=== PATIENT | male | born 1935 | race Hispanic/Latino ===

== ENCOUNTER 2018-09-19 14:42 | Inpatient (IN) | payer MEDICARE ==
[2018-09-19] MEDS ORDERED: Sodium Chloride 0.9% 500 ML IV STA (15:48)
[2018-09-19 15:51] LABS: BASO # 0.02 K/mm3 (0.0-2.0); BASO % 0.2 % (0.0-3.0); EOS # 0.1 (0.0-0.7); EOS % 1.7 % (1.5-5.0); GRAN # 4.51 (1.4-6.5); GRAN % 55.7 % (50.0-68.0); HEMOGLOBIN 13.2 g/dL (14.0-18.0); LYMPH # 2.4 (1.2-3.4); LYMPH % 29.9 % (22.0-35.0); MEAN CELL VOLUME 93.4 fl (80.0-105.0); MEAN CORPUSCULAR HEMOGLOBIN 31.3 pg (25.0-35.0); MEAN CORPUSCULAR HGB CONC 33.5 g/dl (31.0-37.0); MONO % 12.5 % (1.0-6.0); RBC 4.22 10^6/uL (3.5-6.1); RED CELL DISTRIBUTION WIDTH 15.2 % (11.5-14.5); WHITE BLOOD COUNT 8.1 10^3/uL (4.5-11.0)
[2018-09-19 15:55] LABS: VENOUS BLOOD GAS BASE EXCESS -1.9 mmol/L (0.0-2.0); VENOUS BLOOD GAS PO2 37 mm/Hg (30-55); VENOUS BLOOD PH 7.33 (7.32-7.43)
[2018-09-19 16:01] LABS: INR 1.15; PARTIAL THROMBOPLASTIN TIME 29.4 Seconds (25.1-36.5); PROTHROMBIN TIME 13.1 SECONDS (9.4-12.5)
[2018-09-19 16:05] LABS: ALB/GLOB RATIO 0.9 (1.1-1.8); ALBUMIN 3.5 g/dL (3.0-4.8); CALCIUM 9.4 mg/dL (8.4-10.5)
--- NOTE | 2018-09-19 16:05 | ED PDOC ---
Arrival/HPI - General Chief Complaint: Weakness/Neurological Deficit Time Seen by Provider: 09/19/18 14:48 Historian: Spouse, Family EM Caveat: Altered Mental Status - History of Present Illness Narrative History of Present Illness (Text): 09/19/18 16:03 Patient is an 83 yo male past medical history of CVA, presents to the Emergency Department with and daughter for altered mental status "over the past week". Patient reportedly has not been as talkative or interactive and this morning, "wasn't talking very much". No history of trauma. No history of vomiting. No history of shortness of breath or cough. Patient has not expressed pain. He is unable to provide history due to acuity of condition. Time/Duration: 1 week Symptom Onset: Gradual Past Medical History - Cardiac Hx Hypertension: Yes - Neurological HX Cerebrovascular Accident: Yes (x2) - Psychiatric Hx Substance Use: No Family/Social History Family/Social History: Unknown Family HX Smoking Status: Never Smoked Hx Alcohol Use: No Hx Substance Use: No Allergies/Home Meds Allergies/Adverse Reactions: Allergies No Known Allergies Allergy (Verified 09/19/18 14:47) Home Medications: Home Meds Medication Instructions Recorded Confirmed Alprazolam [Alprazolam Xr] 0.5 mg PO HS 09/19/18 09/19/18 Atenolol [Tenormin] 100 mg PO QPM 09/19/18 09/19/18 Losartan [Cozaar] 50 mg PO QAM 09/19/18 09/19/18 amLODIPine [Norvasc] 10 mg PO DAILY 09/19/18 09/19/18 metFORMIN [glucOPHAGE] 500 mg PO DAILY 09/19/18 09/19/18 Review of Systems - Review of Systems Systems not reviewed;Unavailable: Altered Mental Status Constitutional: Fatigue. absent: Fevers Respiratory: absent: SOB Cardiovascular: absent: Chest Pain Gastrointestinal: Appetite Changes Skin: Skin Lesions Neurological: Focal Weakness (from prior stroke) Physical Exam Vital Signs Reviewed: Yes Vital Signs Temp Pulse Resp BP Pulse Ox 09/19/18 15:26 97.6 F 50 L 18 103/51 L 95 Temperature: Afebrile Blood Pressure: Hypotensive Pulse: Bradycardic Appearance: Positive for: Ill-Appearing Mental Status: Positive for: Lethargic Finger Stick Blood Glucose: 79 - Systems Exam Head: Present: Atraumatic Conjunctiva: No: Injected Mouth: Present: Dry, Other (facial droop) Pharnyx: No: Strider Neck: Present: Normal Range of Motion. No: Meningeal Signs Respiratory/Chest: Present: Clear to Auscultation. No: Respiratory Distress Cardiovascular: Present: Murmurs, Bradycardic Abdomen: No: Tenderness, Distention Rectal: No: Gross Blood Upper Extremity: No: Edema Lower Extremity: Present: NORMAL PULSES Neurological: Present: Other (left sided weakness, facial droop, slow slurred speech) Psychiatric: No: Normal Insight, Normal Concentration Medical Decision Making ED Course and Treatment: 09/19/18 16:51 Patient's history is supplemented by and daughter. They state altered mental status has gradually progressed over course of past week, worse over past 24 hours. Patient has history of prior stroke and family states facial droop and left sided weakness are baseline. Patient currently is afebrile. He is bradycardic however with st and t wave abnormality. He does not express pain while in ED. Family states that "he hasn't been eating at all" over the past week. No pain expressed. Hypotension noted. IVF bolus ordered. Initial WBC and lactate unremarkable. ? underlying infectious etiology as UTI noted, although bradycardia with st changes noted suggests possible cardiac involvement although no recent EKG or cardiac workup noted. Case d/w Dr. Jonathan Camacho, will admit to monitored bed, cardiology consultation. 09/19/18 17:07 Chest X-ray reviewed, shows: Impression: No active disease. CT Head reviewed, shows: Impression: No acute findings 09/19/18 17:19 CT Chest/Abdomen/Pelvis reviewed, shows: IMPRESSION: No acute intrathoracic or intra-abdominal findings Upon return from CT patient's SBP 70s. Patient remains altered. IV fluid bolus given and SBP improved to 90s patient more alert and attentive. Family requests DR. De Souza from cardiology, I reviewed EKG with DR. De Souza and consulted Dr. De Souza regarding history and current vitals and exam. Patient will be upgraded to ICU given episode of bradycardia/hypotension. Case d/w DR. Ale Durham who accepts patient to ICU. 09/19/18 17:38 - Lab Interpretations Lab Results: 09/19/18 15:41 Lab Results 09/19/18 15:41: WBC 8.1, RBC 4.22, Hgb 13.2 L, Hct 39.4 L, MCV 93.4, MCH 31.3, MCHC 33.5, RDW 15.2 H, Plt Count 234, MPV 10.0, Gran % 55.7, Lymph % (Auto) 29.9, [place] % (Auto) 12.5 H, Eos % (Auto) 1.7, Baso % (Auto) 0.2, Gran # 4.51, Lymph # (Auto) 2.4, [place] # (Auto) 1.0 H, Eos # (Auto) 0.1, Baso # (Auto) 0.02 09/19/18 15:41: pO2 37, VBG pH 7.33, VBG pCO2 46.0, VBG HCO3 24.3, VBG Total CO2 25.7, VBG O2 Sat (Calc) 72.1 H, VBG Base Excess -1.9 L, VBG Potassium 5.2, Sodium 140.0, Chloride 103.0, Glucose 93, Lactate 1.3, FiO2 21.0, Venous Blood Potassium 5.2 09/19/18 15:19: POC Glucose (mg/dL) 94 - RAD Interpretation Radiology Orders: 09/19/18 14:57 HEAD W/O CONTRAST [CT] Stat CHEST ONE VIEW [RAD] Stat - EKG Interpretation EKG Interpretation (Text): EKG at 1521 marked sinus bradycardia wtih first degree av block with premature atrial complexes with aberrant conduction, st and t wave abnormality Interpreted by ED Physician: Yes Type: 12 lead EKG - Medication Orders Current Medication Orders: Sodium Chloride (Sodium Chloride 0.9%) 500 mls @ 1,000 mls/hr IV .Q30M STA Stop: 09/19/18 16:17 Disposition/Present on Arrival - Present on Arrival Any Indicators Present on Arrival: No History of DVT/PE: No History of Uncontrolled Diabetes: No Urinary Catheter: No History of Decub. Ulcer: No History Surgical Site Infection Following: None - Disposition Have Diagnosis and Disposition been Completed?: Yes Diagnosis: Altered mental status, UTI (urinary tract infection), Bradycardia Disposition: HOSPITALIZED Disposition Time: 16:54 Patient Plan: Admission, Telemetry Patient Problems: Current Active Problems Problem Status Onset Altered mental status Acute Bradycardia Acute UTI (urinary tract infection) Acute Condition: CRITICAL
[2018-09-19 16:16] LABS: TROPONIN I 0.02 ng/mL
[2018-09-19 16:19] LABS: URINE BILIRUBIN NEGATIVE (NEGATIVE); URINE BLOOD LARGE (NEGATIVE); URINE GLUCOSE (UA) NEGATIVE (NEGATIVE); URINE LEUKOCYTE ESTERASE LARGE Leu/uL (NEGATIVE); URINE PROTEIN 100 mg/dL (<30 mg/dL); URINE UROBILINOGEN 0.2 E.U./dL (<1 E.U./dL)
[2018-09-19 16:20] LABS: URINE APPEARANCE CLOUDY (CLEAR); URINE COLOR YELLOW (YELLOW)
[2018-09-19 16:21] LABS: CK-MB 3.3 ng/mL (0.0-3.6)
[2018-09-19 16:26] LABS: URINE BACTERIA LARGE (NEG); URINE WBC 25 - 30 /hpf (0-6)
--- NOTE | 2018-09-19 16:56 | RAD ---
Date of service: 09/19/2018 PROCEDURE: CHEST RADIOGRAPH, 1 VIEW HISTORY: ams COMPARISON: None available. FINDINGS: LUNGS: Clear. PLEURA: No pneumothorax or pleural fluid seen. CARDIOVASCULAR: Minimal aortic calcification mild cardiomegaly. Aortic tortuosity OSSEOUS STRUCTURES: No significant abnormalities. VISUALIZED UPPER ABDOMEN: Normal. OTHER FINDINGS: None. IMPRESSION: No active disease.
--- NOTE | 2018-09-19 17:03 | CT ---
Date of service: 09/19/2018 PROCEDURE: CT HEAD WITHOUT CONTRAST. HISTORY: ams COMPARISON: None available. TECHNIQUE: Axial computed tomography images were obtained through the head/brain without intravenous contrast. Radiation dose: Total exam DLP = 955.36 mGy-cm. This CT exam was performed using one or more of the following dose reduction techniques: Automated exposure control, adjustment of the mA and/or kV according to patient size, and/or use of iterative reconstruction technique. FINDINGS: HEMORRHAGE: No intracranial hemorrhage. BRAIN: No mass effect or edema. Severe chronic microvascular changes are seen in the periventricular white matter. There is moderate atrophy including the brainstem. There is a chronic lacunar infarct on the right side of the grayson VENTRICLES: There is ventricular dilatation right greater than left most likely on the basis of atrophy. CALVARIUM: Unremarkable. PARANASAL SINUSES: Unremarkable as visualized. No significant inflammatory changes. MASTOID AIR CELLS: Unremarkable as visualized. No inflammatory changes. OTHER FINDINGS: None. IMPRESSION: No acute findings
--- NOTE | 2018-09-19 17:13 | CT ---
Date of service: 09/19/2018 PROCEDURE: CT Chest, Abdomen and Pelvis without intravenous contrast HISTORY: pain, ams COMPARISON: None available. TECHNIQUE: Radiation dose: Total exam DLP = 440.7 mGy-cm. This CT exam was performed using one or more of the following dose reduction techniques: Automated exposure control, adjustment of the mA and/or kV according to patient size, and/or use of iterative reconstruction technique. FINDINGS: CT CHEST WITHOUT CONTRAST: LUNGS: The lungs have a hyper expanded appearance consistent with COPD. There is no focal infiltrate. There are no masses MEDIASTINUM: Unremarkable. Normal caliber aorta and pulmonary arterial trunk. Normal size heart. Aortic calcifications. Coronary artery calcifications LYMPH NODES: Unremarkable. PLEURA: Unremarkable. No pneumothorax. No pleural fluid. BONES: Unremarkable. OTHER FINDINGS: None. CT ABDOMEN AND PELVIS: LIVER: Unremarkable. No gross lesion or ductal dilatation. GALLBLADDER AND BILE DUCTS: The gallbladder contains dense material consistent with milk of calcium. The gallbladder is moderately distended PANCREAS: Unremarkable. No gross lesion or ductal dilatation. SPLEEN: Unremarkable. ADRENALS: Unremarkable. No mass. KIDNEYS AND URETERS: Unremarkable. No hydronephrosis. No solid mass. VASCULATURE: No aortic atherosclerotic calcification or mural plaque present. Unremarkable. No aortic aneurysm. BOWEL: Unremarkable. No obstruction. No gross mural thickening. APPENDIX: Normal appendix. PERITONEUM: Unremarkable. No free fluid. No free air. LYMPH NODES: Unremarkable. No enlarged lymph nodes. BLADDER: Unremarkable. REPRODUCTIVE: Unremarkable. BONES: No acute fracture. OTHER FINDINGS: None. IMPRESSION: No acute intrathoracic or intra-abdominal findings
[2018-09-19] MEDS ORDERED: Sodium Chloride 0.9% 1,000 ML IV STA (17:40)
--- NOTE | 2018-09-19 21:26 | CP.PCM.CON ---
<JuanGuanakito - Last Filed: 09/19/18 21:07> History of Present Illness - History of Present Illness History of Present Illness: ICU Consult Note: Juan PGY - 2 Reason For Consult: Bradycardia and Hypotension HPI: 83 year old male with pertinent medical history of past CVA presents with altered mental status. Per chart review, patient has been less interactive for the past week and has been not himself. ICU consult was obtained for bradycardia and hypotension. Patient is a very poor historian, but does not offer any complaints, including chest pain, shortness of breath, or pain. Review of Systems: 12 point ROS obtained and negative except as per HPI Surgical Hx: Patient denies, but poor historian Medical Hx: CVA Allergies: NKDA Social Hx: Denies illicits, tobacco, EtOH Home Meds: Reviewed, as per MAR Family Hx: Non-contributory Past Patient History - Past Social History Smoking Status: Never Smoked - CARDIAC Hx Hypertension: Yes - NEUROLOGICAL HX Cerebrovascular Accident: Yes (x2) - PSYCHIATRIC Hx Substance Use: No Meds Allergies/Adverse Reactions: Allergies Allergy/AdvReac Type Severity Reaction Status Date / Time No Known Allergies Allergy Verified 09/19/18 14:47 - Medications Medications: Current Medications Sodium Chloride (Sodium Chloride 0.9%) 1,000 mls @ 100 mls/hr IV .Q10H BENJAMIN Physical Exam - Constitutional Appears: Well - Head Exam Head Exam: ATRAUMATIC, NORMAL INSPECTION, NORMOCEPHALIC - Eye Exam Eye Exam: EOMI, Normal appearance, PERRL Pupil Exam: NORMAL ACCOMODATION, PERRL - ENT Exam ENT Exam: Mucous Membranes Moist, Normal Exam - Neck Exam Neck exam: Positive for: Normal Inspection - Respiratory Exam Respiratory Exam: Clear to Auscultation Bilateral, NORMAL BREATHING PATTERN - Cardiovascular Exam Cardiovascular Exam: REGULAR RHYTHM - GI/Abdominal Exam GI & Abdominal Exam: Normal Bowel Sounds, Soft. absent: Tenderness - Extremities Exam Extremities exam: Positive for: normal inspection - Back Exam Back exam: NORMAL INSPECTION - Neurological Exam Neurological exam: Alert, CN II-XII Intact, Normal Gait, Oriented x3, Reflexes Normal - Psychiatric Exam Psychiatric exam: Normal Affect, Normal Mood - Skin Skin Exam: Dry, Intact, Normal Color, Warm Results - Vital Signs Recent Vital Signs: Last Vital Signs Temp 97.6 F 09/19/18 19:58 Pulse 46 L 09/19/18 19:58 Resp 18 09/19/18 19:58 BP 105/43 L 09/19/18 19:58 Pulse Ox 96 09/19/18 19:58 - Labs Result Diagrams: 09/19/18 15:41 09/19/18 15:41 Labs: Laboratory Results - last 24 hr 09/19/18 09/19/18 09/19/18 15:19 15:41 15:41 WBC 8.1 RBC 4.22 Hgb 13.2 L Hct 39.4 L MCV 93.4 MCH 31.3 MCHC 33.5 RDW 15.2 H Plt Count 234 MPV 10.0 Gran % 55.7 Lymph % (Auto) 29.9 [place] % (Auto) 12.5 H Eos % (Auto) 1.7 Baso % (Auto) 0.2 Gran # 4.51 Lymph # (Auto) 2.4 [place] # (Auto) 1.0 H Eos # (Auto) 0.1 Baso # (Auto) 0.02 PT INR APTT pO2 37 VBG pH 7.33 VBG pCO2 46.0 VBG HCO3 24.3 VBG Total CO2 25.7 VBG O2 Sat (Calc) 72.1 H VBG Base Excess -1.9 L VBG Potassium 5.2 Sodium 140.0 Chloride 103.0 Glucose 93 Lactate 1.3 FiO2 21.0 Potassium Carbon Dioxide Anion Gap BUN Creatinine Est GFR ( Amer) Est GFR (Non-Af Amer) POC Glucose (mg/dL) 94 Random Glucose Calcium Magnesium Total Bilirubin AST ALT Alkaline Phosphatase Lactate Dehydrogenase Total Creatine Kinase CK-MB (CK-2) CK-MB (CK-2) % Troponin I NT-Pro-B Natriuret Pep Total Protein Albumin Globulin Albumin/Globulin Ratio Venous Blood Potassium 5.2 Urine Color Urine Appearance Urine pH Ur Specific [place] Urine Protein Urine Glucose (UA) Urine Ketones Urine Blood Urine Nitrate Urine Bilirubin Urine Urobilinogen Ur Leukocyte Esterase Urine RBC Urine WBC Ur Epithelial Cells Urine Bacteria Influenza Typ A,B (EIA) 09/19/18 09/19/18 09/19/18 15:41 15:41 15:41 WBC RBC Hgb Hct MCV MCH MCHC RDW Plt Count MPV Gran % Lymph % (Auto) [place] % (Auto) Eos % (Auto) Baso % (Auto) Gran # Lymph # (Auto) [place] # (Auto) Eos # (Auto) Baso # (Auto) PT 13.1 H INR 1.15 APTT 29.4 pO2 VBG pH VBG pCO2 VBG HCO3 VBG Total CO2 VBG O2 Sat (Calc) VBG Base Excess VBG Potassium Sodium 139 Chloride 106 Glucose Lactate FiO2 Potassium 5.3 H Carbon Dioxide 25 Anion Gap 14 BUN 31 H Creatinine 1.7 H Est GFR ( Amer) 47 Est GFR (Non-Af Amer) 39 POC Glucose (mg/dL) Random Glucose 97 Calcium 9.4 Magnesium 2.3 H Total Bilirubin 1.1 AST 29 ALT 18 Alkaline Phosphatase 89 Lactate Dehydrogenase 451 Total Creatine Kinase 308 H CK-MB (CK-2) 3.3 CK-MB (CK-2) % Cancelled Troponin I 0.02 NT-Pro-B Natriuret Pep 2300 H Total Protein 7.5 Albumin 3.5 Globulin 4.0 Albumin/Globulin Ratio 0.9 L Venous Blood Potassium Urine Color Urine Appearance Urine pH Ur Specific [place] Urine Protein Urine Glucose (UA) Urine Ketones Urine Blood Urine Nitrate Urine Bilirubin Urine Urobilinogen Ur Leukocyte Esterase Urine RBC Urine WBC Ur Epithelial Cells Urine Bacteria Influenza Typ A,B (EIA) Negative for flu a/b 09/19/18 09/19/18 09/19/18 15:48 16:11 20:54 WBC RBC Hgb Hct MCV MCH MCHC RDW Plt Count MPV Gran % Lymph % (Auto) [place] % (Auto) Eos % (Auto) Baso % (Auto) Gran # Lymph # (Auto) [place] # (Auto) Eos # (Auto) Baso # (Auto) PT INR APTT pO2 VBG pH VBG pCO2 VBG HCO3 VBG Total CO2 VBG O2 Sat (Calc) VBG Base Excess VBG Potassium Sodium Chloride Glucose Lactate FiO2 Potassium Carbon Dioxide Anion Gap BUN Creatinine Est GFR ( Amer) Est GFR (Non-Af Amer) POC Glucose (mg/dL) 97 95 Random Glucose Calcium Magnesium Total Bilirubin AST ALT Alkaline Phosphatase Lactate Dehydrogenase Total Creatine Kinase CK-MB (CK-2) CK-MB (CK-2) % Troponin I NT-Pro-B Natriuret Pep Total Protein Albumin Globulin Albumin/Globulin Ratio Venous Blood Potassium Urine Color Yellow Urine Appearance Cloudy Urine pH 6.0 Ur Specific [place] >= 1.030 Urine Protein 100 H Urine Glucose (UA) Negative Urine Ketones Trace H Urine Blood Large H Urine Nitrate Positive H Urine Bilirubin Negative Urine Urobilinogen 0.2 Ur Leukocyte Esterase Large H Urine RBC 2 - 5 Urine WBC 25 - 30 Ur Epithelial Cells None Urine Bacteria Large Influenza Typ A,B (EIA) Assessment & Plan - Assessment and Plan (Free Text) Assessment: 83 year old male with pmhx of CVA presenting with AMS and bradycardia with hypotension. ICU consultation obtained for the latter. Recommend: - Trend tropes and EKG in AM - Monitor blood pressure - Give plenty of IVF ICU is not needed at this time. Please feel free to re-consult if patient becomes hemodynamically unstable. <Rani Saucedo - Last Filed: 09/20/18 03:37> Meds - Medications Medications: Current Medications Sodium Chloride (Sodium Chloride 0.9%) 1,000 mls @ 100 mls/hr IV .Q10H BENJAMIN Last Admin: 09/20/18 01:24 Dose: 100 mls/hr Results - Vital Signs Recent Vital Signs: Last Vital Signs Temp 97.6 F 09/19/18 19:58 Pulse 46 L 09/19/18 19:58 Resp 18 09/19/18 19:58 BP 105/43 L 09/19/18 19:58 Pulse Ox 96 09/19/18 19:58 - Labs Result Diagrams: 09/19/18 15:41 09/19/18 15:41 Labs: Laboratory Results - last 24 hr 09/19/18 09/19/18 09/19/18 15:19 15:41 15:41 WBC 8.1 RBC 4.22 Hgb 13.2 L Hct 39.4 L MCV 93.4 MCH 31.3 MCHC 33.5 RDW 15.2 H Plt Count 234 MPV 10.0 Gran % 55.7 Lymph % (Auto) 29.9 [place] % (Auto) 12.5 H Eos % (Auto) 1.7 Baso % (Auto) 0.2 Gran # 4.51 Lymph # (Auto) 2.4 [place] # (Auto) 1.0 H Eos # (Auto) 0.1 Baso # (Auto) 0.02 PT INR APTT pO2 37 VBG pH 7.33 VBG pCO2 46.0 VBG HCO3 24.3 VBG Total CO2 25.7 VBG O2 Sat (Calc) 72.1 H VBG Base Excess -1.9 L VBG Potassium 5.2 Sodium 140.0 Chloride 103.0 Glucose 93 Lactate 1.3 FiO2 21.0 Potassium Carbon Dioxide Anion Gap BUN Creatinine Est GFR ( Amer) Est GFR (Non-Af Amer) POC Glucose (mg/dL) 94 Random Glucose Calcium Magnesium Total Bilirubin AST ALT Alkaline Phosphatase Lactate Dehydrogenase Total Creatine Kinase CK-MB (CK-2) CK-MB (CK-2) % Troponin I NT-Pro-B Natriuret Pep Total Protein Albumin Globulin Albumin/Globulin Ratio Venous Blood Potassium 5.2 Urine Color Urine Appearance Urine pH Ur Specific [place] Urine Protein Urine Glucose (UA) Urine Ketones Urine Blood Urine Nitrate Urine Bilirubin Urine Urobilinogen Ur Leukocyte Esterase Urine RBC Urine WBC Ur Epithelial Cells Urine Bacteria Influenza Typ A,B (EIA) 09/19/18 09/19/18 09/19/18 15:41 15:41 15:41 WBC RBC Hgb Hct MCV MCH MCHC RDW Plt Count MPV Gran % Lymph % (Auto) [place] % (Auto) Eos % (Auto) Baso % (Auto) Gran # Lymph # (Auto) [place] # (Auto) Eos # (Auto) Baso # (Auto) PT 13.1 H INR 1.15 APTT 29.4 pO2 VBG pH VBG pCO2 VBG HCO3 VBG Total CO2 VBG O2 Sat (Calc) VBG Base Excess VBG Potassium Sodium 139 Chloride 106 Glucose Lactate FiO2 Potassium 5.3 H Carbon Dioxide 25 Anion Gap 14 BUN 31 H Creatinine 1.7 H Est GFR ( Amer) 47 Est GFR (Non-Af Amer) 39 POC Glucose (mg/dL) Random Glucose 97 Calcium 9.4 Magnesium 2.3 H Total Bilirubin 1.1 AST 29 ALT 18 Alkaline Phosphatase 89 Lactate Dehydrogenase 451 Total Creatine Kinase 308 H CK-MB (CK-2) 3.3 CK-MB (CK-2) % Cancelled Troponin I 0.02 NT-Pro-B Natriuret Pep 2300 H Total Protein 7.5 Albumin 3.5 Globulin 4.0 Albumin/Globulin Ratio 0.9 L Venous Blood Potassium Urine Color Urine Appearance Urine pH Ur Specific [place] Urine Protein Urine Glucose (UA) Urine Ketones Urine Blood Urine Nitrate Urine Bilirubin Urine Urobilinogen Ur Leukocyte Esterase Urine RBC Urine WBC Ur Epithelial Cells Urine Bacteria Influenza Typ A,B (EIA) Negative for flu a/b 09/19/18 09/19/18 09/19/18 15:48 16:11 20:54 WBC RBC Hgb Hct MCV MCH MCHC RDW Plt Count MPV Gran % Lymph % (Auto) [place] % (Auto) Eos % (Auto) Baso % (Auto) Gran # Lymph # (Auto) [place] # (Auto) Eos # (Auto) Baso # (Auto) PT INR APTT pO2 VBG pH VBG pCO2 VBG HCO3 VBG Total CO2 VBG O2 Sat (Calc) VBG Base Excess VBG Potassium Sodium Chloride Glucose Lactate FiO2 Potassium Carbon Dioxide Anion Gap BUN Creatinine Est GFR ( Amer) Est GFR (Non-Af Amer) POC Glucose (mg/dL) 97 95 Random Glucose Calcium Magnesium Total Bilirubin AST ALT Alkaline Phosphatase Lactate Dehydrogenase Total Creatine Kinase CK-MB (CK-2) CK-MB (CK-2) % Troponin I NT-Pro-B Natriuret Pep Total Protein Albumin Globulin Albumin/Globulin Ratio Venous Blood Potassium Urine Color Yellow Urine Appearance Cloudy Urine pH 6.0 Ur Specific [place] >= 1.030 Urine Protein 100 H Urine Glucose (UA) Negative Urine Ketones Trace H Urine Blood Large H Urine Nitrate Positive H Urine Bilirubin Negative Urine Urobilinogen 0.2 Ur Leukocyte Esterase Large H Urine RBC 2 - 5 Urine WBC 25 - 30 Ur Epithelial Cells None Urine Bacteria Large Influenza Typ A,B (EIA) 09/19/18 22:30 WBC RBC Hgb Hct MCV MCH MCHC RDW Plt Count MPV Gran % Lymph % (Auto) [place] % (Auto) Eos % (Auto) Baso % (Auto) Gran # Lymph # (Auto) [place] # (Auto) Eos # (Auto) Baso # (Auto) PT INR APTT pO2 VBG pH VBG pCO2 VBG HCO3 VBG Total CO2 VBG O2 Sat (Calc) VBG Base Excess VBG Potassium Sodium Chloride Glucose Lactate FiO2 Potassium Carbon Dioxide Anion Gap BUN Creatinine Est GFR ( Amer) Est GFR (Non-Af Amer) POC Glucose (mg/dL) Random Glucose Calcium Magnesium Total Bilirubin AST ALT Alkaline Phosphatase Lactate Dehydrogenase Total Creatine Kinase CK-MB (CK-2) CK-MB (CK-2) % Troponin I 0.02 NT-Pro-B Natriuret Pep Total Protein Albumin Globulin Albumin/Globulin Ratio Venous Blood Potassium Urine Color Urine Appearance Urine pH Ur Specific [place] Urine Protein Urine Glucose (UA) Urine Ketones Urine Blood Urine Nitrate Urine Bilirubin Urine Urobilinogen Ur Leukocyte Esterase Urine RBC Urine WBC Ur Epithelial Cells Urine Bacteria Influenza Typ A,B (EIA) Attending/Attestation - Attestation I have personally seen and examined this patient.: Yes I have fully participated in the care of the patient.: Yes I have reviewed all pertinent clinical information: Yes Notes (Text): 09/20/18 03:35 Patient was seen when he was in the bed 13 in the ER. HIstory obtained from daughter. Agree with history, physical examination, assessment and plan.
[2018-09-20] MEDS: Sodium Chloride 0.9% 1,000 ML IV SCH ×2 (01:24→15:01)
[2018-09-20] MEDS ORDERED: cefTRIAXone 2 GM IN NS 2 GM/100 ML BAG IVPB STA (03:53)
[2018-09-20 06:09] LABS: ALB/GLOB RATIO 0.8 (1.1-1.8); ALBUMIN 3.2 g/dL (3.0-4.8); ALT/SGPT 18 U/L (7-56); AST/SGOT 25 U/L (17-59); BLOOD UREA NITROGEN 28 mg/dL (7-21); CALCIUM 8.9 mg/dL (8.4-10.5); GFR NON-AFRICAN AMERICAN 53
[2018-09-20 06:20] LABS: TROPONIN I 0.02 ng/mL
[2018-09-20 06:24] LABS: BASO # 0.02 K/mm3 (0.0-2.0); BASO % 0.3 % (0.0-3.0); EOS # 0.1 (0.0-0.7); EOS % 1.4 % (1.5-5.0); GRAN # 4.26 (1.4-6.5); GRAN % 55.9 % (50.0-68.0); LYMPH # 2.4 (1.2-3.4); LYMPH % 31.2 % (22.0-35.0); MEAN CELL VOLUME 95.7 fl (80.0-105.0); MEAN CORPUSCULAR HEMOGLOBIN 32.9 pg (25.0-35.0); MEAN CORPUSCULAR HGB CONC 34.4 g/dl (31.0-37.0); MEAN PLATELET VOLUME 10.1 fl (7.0-11.0); MONO # 0.9 (0.1-0.6); MONO % 11.2 % (1.0-6.0); RBC 3.95 10^6/uL (3.5-6.1); RED CELL DISTRIBUTION WIDTH 15.1 % (11.5-14.5); WHITE BLOOD COUNT 7.6 10^3/uL (4.5-11.0)
[2018-09-20] MEDS ORDERED: Insulin Lispro 1 UNITS/0.01 ML ONE (08:22)
--- NOTE | 2018-09-20 08:40 | CARD ---
APPROVED REPORT Date of service: 09/19/2018 EKG Measurement Heart [id number] <Conclusion> Sinus bradycardia with 1st degree AV block with premature atrial complexes with aberrant conduction Low voltage QRS Nonspecific ST and T wave abnormality Prolonged QT Abnormal ECG
--- NOTE | 2018-09-20 08:42 | CARD ---
APPROVED REPORT Date of service: 09/19/2018 EKG Measurement Heart [id number] <Conclusion> Marked sinus bradycardia with 1st degree AV block with premature atrial complexes with aberrant conduction ST & T wave abnormality, consider anterolateral ischemia Abnormal ECG
[2018-09-20 12:41] VITALS: BMI 15.2
--- NOTE | 2018-09-20 15:11 | CP.PCM.CON ---
History of Present Illness - History of Present Illness History of Present Illness: Lethargic, no distress, facial droop (baseline) Reason for consultation:Cardiac evaluation for bradycardia Brief history of present illness: An 83 year old who came in to the ER due to altered mental status for the past week as per family member. History of CVA x 2 .(facial droop, left sided weakness as baseline), hypertension. Patient was not interactive or talking much prior to admission. Seen and examined by Dr. De Souza Review of Systems - Review of Systems All systems: reviewed and no additional remarkable complaints except Review of Systems: as per HPI Past Patient History - Past Social History Smoking Status: Never Smoked - CARDIAC Hx Hypertension: Yes - NEUROLOGICAL HX Cerebrovascular Accident: Yes (x2) - MUSCULOSKELETAL/RHEUMATOLOGICAL Hx Falls: No - PSYCHIATRIC Hx Substance Use: No Meds Allergies/Adverse Reactions: Allergies Allergy/AdvReac Type Severity Reaction Status Date / Time No Known Allergies Allergy Verified 09/19/18 14:47 - Medications Medications: Current Medications Amlodipine Besylate (Norvasc) 10 mg PO DAILY [facility] Atenolol (Tenormin) 100 mg PO QPM [facility] Sodium Chloride (Sodium Chloride 0.9%) 1,000 mls @ 100 mls/hr IV .Q10H [facility] Last Admin: 09/20/18 15:01 Dose: 100 mls/hr Ceftriaxone Sodium (Rocephin 1 Gram Ivpb) 1 gm in 100 mls @ 100 mls/hr IVPB DAILY [facility]; Protocol Losartan Potassium (Cozaar) 50 mg PO QAM [facility] Metformin HCl (Glucophage) 500 mg PO DAILY [facility] Pantoprazole Sodium (Protonix Inj) 40 mg IVP DAILY [facility] Last Admin: 09/20/18 10:41 Dose: 40 mg Physical Exam - Constitutional Appears: Non-toxic, No Acute Distress - ENT Exam ENT Exam: Mucous Membranes Dry - Respiratory Exam Respiratory Exam: Decreased Breath Sounds, NORMAL BREATHING PATTERN - Cardiovascular Exam Cardiovascular Exam: Bradycardia, +S1, +S2 Additional comments: Telemetry SB 40-50's - Extremities Exam Additional comments: left sided weakness - Neurological Exam Additional comments: lethargic - Skin Skin Exam: Normal Color, Warm Results - Vital Signs Recent Vital Signs: Last Vital Signs Temp 97.8 F 09/20/18 12:00 Pulse 58 L 09/20/18 12:00 Resp 20 09/20/18 12:00 BP 109/44 L 09/20/18 12:00 Pulse Ox 97 09/20/18 12:00 - Labs Result Diagrams: 09/20/18 05:30 09/20/18 05:30 Labs: Laboratory Results - last 24 hr 09/19/18 09/19/18 09/19/18 15:19 15:41 15:41 WBC 8.1 RBC 4.22 Hgb 13.2 L Hct 39.4 L MCV 93.4 MCH 31.3 MCHC 33.5 RDW 15.2 H Plt Count 234 MPV 10.0 Gran % 55.7 Lymph % (Auto) 29.9 Webster % (Auto) 12.5 H Eos % (Auto) 1.7 Baso % (Auto) 0.2 Gran # 4.51 Lymph # (Auto) 2.4 Webster # (Auto) 1.0 H Eos # (Auto) 0.1 Baso # (Auto) 0.02 PT INR APTT pO2 37 VBG pH 7.33 VBG pCO2 46.0 VBG HCO3 24.3 VBG Total CO2 25.7 VBG O2 Sat (Calc) 72.1 H VBG Base Excess -1.9 L VBG Potassium 5.2 Sodium 140.0 Chloride 103.0 Glucose 93 Lactate 1.3 FiO2 21.0 Potassium Carbon Dioxide Anion Gap BUN Creatinine Est GFR ( Amer) Est GFR (Non-Af Amer) POC Glucose (mg/dL) 94 Random Glucose Calcium Magnesium Total Bilirubin AST ALT Alkaline Phosphatase Ammonia Lactate Dehydrogenase Total Creatine Kinase CK-MB (CK-2) CK-MB (CK-2) % Troponin I NT-Pro-B Natriuret Pep Total Protein Albumin Globulin Albumin/Globulin Ratio TSH 3rd Generation Venous Blood Potassium 5.2 Urine Color Urine Appearance Urine pH Ur Specific [place] Urine Protein Urine Glucose (UA) Urine Ketones Urine Blood Urine Nitrate Urine Bilirubin Urine Urobilinogen Ur Leukocyte Esterase Urine RBC Urine WBC Ur Epithelial Cells Urine Bacteria Influenza Typ A,B (EIA) 09/19/18 09/19/18 09/19/18 15:41 15:41 15:41 WBC RBC Hgb Hct MCV MCH MCHC RDW Plt Count MPV Gran % Lymph % (Auto) Webster % (Auto) Eos % (Auto) Baso % (Auto) Gran # Lymph # (Auto) [place] # (Auto) Eos # (Auto) Baso # (Auto) PT 13.1 H INR 1.15 APTT 29.4 pO2 VBG pH VBG pCO2 VBG HCO3 VBG Total CO2 VBG O2 Sat (Calc) VBG Base Excess VBG Potassium Sodium 139 Chloride 106 Glucose Lactate FiO2 Potassium 5.3 H Carbon Dioxide 25 Anion Gap 14 BUN 31 H Creatinine 1.7 H Est GFR ( Amer) 47 Est GFR (Non-Af Amer) 39 POC Glucose (mg/dL) Random Glucose 97 Calcium 9.4 Magnesium 2.3 H Total Bilirubin 1.1 AST 29 ALT 18 Alkaline Phosphatase 89 Ammonia Lactate Dehydrogenase 451 Total Creatine Kinase 308 H CK-MB (CK-2) 3.3 CK-MB (CK-2) % Cancelled Troponin I 0.02 NT-Pro-B Natriuret Pep 2300 H Total Protein 7.5 Albumin 3.5 Globulin 4.0 Albumin/Globulin Ratio 0.9 L TSH 3rd Generation Venous Blood Potassium Urine Color Urine Appearance Urine pH Ur Specific [place] Urine Protein Urine Glucose (UA) Urine Ketones Urine Blood Urine Nitrate Urine Bilirubin Urine Urobilinogen Ur Leukocyte Esterase Urine RBC Urine WBC Ur Epithelial Cells Urine Bacteria Influenza Typ A,B (EIA) Negative for flu a/b 09/19/18 09/19/18 09/19/18 15:48 16:11 20:54 WBC RBC Hgb Hct MCV MCH MCHC RDW Plt Count MPV Gran % Lymph % (Auto) [place] % (Auto) Eos % (Auto) Baso % (Auto) Gran # Lymph # (Auto) Webster # (Auto) Eos # (Auto) Baso # (Auto) PT INR APTT pO2 VBG pH VBG pCO2 VBG HCO3 VBG Total CO2 VBG O2 Sat (Calc) VBG Base Excess VBG Potassium Sodium Chloride Glucose Lactate FiO2 Potassium Carbon Dioxide Anion Gap BUN Creatinine Est GFR ( Amer) Est GFR (Non-Af Amer) POC Glucose (mg/dL) 97 95 Random Glucose Calcium Magnesium Total Bilirubin AST ALT Alkaline Phosphatase Ammonia Lactate Dehydrogenase Total Creatine Kinase CK-MB (CK-2) CK-MB (CK-2) % Troponin I NT-Pro-B Natriuret Pep Total Protein Albumin Globulin Albumin/Globulin Ratio TSH 3rd Generation Venous Blood Potassium Urine Color Yellow Urine Appearance Cloudy Urine pH 6.0 Ur Specific [place] >= 1.030 Urine Protein 100 H Urine Glucose (UA) Negative Urine Ketones Trace H Urine Blood Large H Urine Nitrate Positive H Urine Bilirubin Negative Urine Urobilinogen 0.2 Ur Leukocyte Esterase Large H Urine RBC 2 - 5 Urine WBC 25 - 30 Ur Epithelial Cells None Urine Bacteria Large Influenza Typ A,B (EIA) 09/19/18 09/20/18 09/20/18 22:30 05:30 05:30 WBC RBC Hgb Hct MCV MCH MCHC RDW Plt Count MPV Gran % Lymph % (Auto) [place] % (Auto) Eos % (Auto) Baso % (Auto) Gran # Lymph # (Auto) [place] # (Auto) Eos # (Auto) Baso # (Auto) PT INR APTT pO2 VBG pH VBG pCO2 VBG HCO3 VBG Total CO2 VBG O2 Sat (Calc) VBG Base Excess VBG Potassium Sodium 141 Chloride 111 H Glucose Lactate FiO2 Potassium 5.0 Carbon Dioxide 21 Anion Gap 14 BUN 28 H Creatinine 1.3 Est GFR ( Amer) > 60 Est GFR (Non-Af Amer) 53 POC Glucose (mg/dL) Random Glucose 86 Calcium 8.9 Magnesium Total Bilirubin 0.8 AST 25 ALT 18 Alkaline Phosphatase 83 Ammonia < 9 L Lactate Dehydrogenase Total Creatine Kinase CK-MB (CK-2) CK-MB (CK-2) % Troponin I 0.02 0.02 NT-Pro-B Natriuret Pep Total Protein 7.2 Albumin 3.2 Globulin 3.9 Albumin/Globulin Ratio 0.8 L TSH 3rd Generation Venous Blood Potassium Urine Color Urine Appearance Urine pH Ur Specific [place] Urine Protein Urine Glucose (UA) Urine Ketones Urine Blood Urine Nitrate Urine Bilirubin Urine Urobilinogen Ur Leukocyte Esterase Urine RBC Urine WBC Ur Epithelial Cells Urine Bacteria Influenza Typ A,B (EIA) 09/20/18 09/20/18 09/20/18 05:30 05:30 09:10 WBC 7.6 RBC 3.95 Hgb 13.0 L Hct 37.8 L MCV 95.7 MCH 32.9 MCHC 34.4 RDW 15.1 H Plt Count 246 MPV 10.1 Gran % 55.9 Lymph % (Auto) 31.2 [place] % (Auto) 11.2 H Eos % (Auto) 1.4 L Baso % (Auto) 0.3 Gran # 4.26 Lymph # (Auto) 2.4 Webster # (Auto) 0.9 H Eos # (Auto) 0.1 Baso # (Auto) 0.02 PT INR APTT pO2 VBG pH VBG pCO2 VBG HCO3 VBG Total CO2 VBG O2 Sat (Calc) VBG Base Excess VBG Potassium Sodium Chloride Glucose Lactate FiO2 Potassium Carbon Dioxide Anion Gap BUN Creatinine Est GFR ( Amer) Est GFR (Non-Af Amer) POC Glucose (mg/dL) Random Glucose Calcium Magnesium Total Bilirubin AST ALT Alkaline Phosphatase Ammonia Lactate Dehydrogenase Total Creatine Kinase CK-MB (CK-2) CK-MB (CK-2) % Troponin I 0.02 NT-Pro-B Natriuret Pep Total Protein Albumin Globulin Albumin/Globulin Ratio TSH 3rd Generation 2.02 Venous Blood Potassium Urine Color Urine Appearance Urine pH Ur Specific [place] Urine Protein Urine Glucose (UA) Urine Ketones Urine Blood Urine Nitrate Urine Bilirubin Urine Urobilinogen Ur Leukocyte Esterase Urine RBC Urine WBC Ur Epithelial Cells Urine Bacteria Influenza Typ A,B (EIA) 09/20/18 15:03 WBC RBC Hgb Hct MCV MCH MCHC RDW Plt Count MPV Gran % Lymph % (Auto) [place] % (Auto) Eos % (Auto) Baso % (Auto) Gran # Lymph # (Auto) [place] # (Auto) Eos # (Auto) Baso # (Auto) PT INR APTT pO2 VBG pH VBG pCO2 VBG HCO3 VBG Total CO2 VBG O2 Sat (Calc) VBG Base Excess VBG Potassium Sodium Chloride Glucose Lactate FiO2 Potassium Carbon Dioxide Anion Gap BUN Creatinine Est GFR ( Amer) Est GFR (Non-Af Amer) POC Glucose (mg/dL) 81 Random Glucose Calcium Magnesium Total Bilirubin AST ALT Alkaline Phosphatase Ammonia Lactate Dehydrogenase Total Creatine Kinase CK-MB (CK-2) CK-MB (CK-2) % Troponin I NT-Pro-B Natriuret Pep Total Protein Albumin Globulin Albumin/Globulin Ratio TSH 3rd Generation Venous Blood Potassium Urine Color Urine Appearance Urine pH Ur Specific [place] Urine Protein Urine Glucose (UA) Urine Ketones Urine Blood Urine Nitrate Urine Bilirubin Urine Urobilinogen Ur Leukocyte Esterase Urine RBC Urine WBC Ur Epithelial Cells Urine Bacteria Influenza Typ A,B (EIA) Assessment & Plan - Assessment and Plan (Free Text) Assessment: An 83 year old who came in to the ER due to altered mental status for the past week as per family member. History of CVA x 2 .(facial droop, left sided weakness as baseline), hypertension. Patient was not interactive or talking much prior to admission. Poor historian. Chart reviewed.Patient is taking atenolol and cozaar and amlodipine at home. Last intake was 09/19/18. Will hold meds for now.EKG showed bradycardia so cardiac consult was called. Also patient is hypotensive. IV fluids started at 100cc/hr.chest X ray -normal, !2 lead EKG showed Sinus bradycardia with 1st degree AV block with premature atrial complexes with aberrant conduction, Non specific ST T wave abnormality,prolonged QT. No betablocker. Troponin normal x 3.Urine culture positive for gram negative rods.Admitted for UTI and Bradycardia. [place] [facility] [place] order Echo to evaluate LV function. Plan: For Echo to evaluate LV function Lethargic but arousable Urinary tract infection (gram negative rods) Hold Atenolol, Amlodipine and Cozaar for now until we stabilized blood pressure and heart rate Bradycardia due to betablocker Continue Rocephin Continue IV hydration Continue current treatment Will reevaluate in the morning to resume of medications Lipid panel and HgbA1c Will follow up Plan and treatment discussed with Dr. De Souza Thank you Dr. Pickett for the opportunity of taking care of Buck Lubin - Date & Time Date: 09/20/18 Time: 10:20
--- NOTE | 2018-09-20 15:26 | PN ---
DATE: 09/20/2018 SUBJECTIVE: The patient is an 83-year-old male with a history of cerebrovascular accident x2 in the past, leaving him with residual left-sided weakness. He has a history of hypertension, [id number] diabetes mellitus. He was admitted yesterday after the patient's daughter noted mental status changes. The patient was much more obtunded and nonverbal over the past few days. She also noted that he lost a considerable amount of weight over the past several months. The patient is seen today, he is still in holding area of the emergency room awaiting a bed upstairs. When seen, he is a bit more awake and alert. He spoke a few short sentences. PHYSICAL EXAMINATION: LUNGS: Clear. HEART: Regular. CIVIL CAD TECH: Residual left-sided weakness, status post CVA is noted. LABORATORY DATA: This morning's laboratory shows the white blood cell count to be 7.6, hemoglobin and hematocrit are 13.0 and 37.1. Sodium is 141, potassium 5, blood urea nitrogen is 28, creatinine is 1.3. PLAN: At this point, we are continuing his IV fluids, continuing his antibiotics of Rocephin intravenously once a day. The case will be discussed with neurologist, Dr. Kaur as well as master brewer, Dr. De Souza. The patient will be reevaluated in the morning. Agustin Pickett MD MTDOtilia
--- NOTE | 2018-09-20 15:31 | CARD ---
APPROVED REPORT Date of service: 09/20/2018 EKG Measurement Heart [id number] <Conclusion> Marked sinus bradycardia with 1st degree AV block Nonspecific ST and T wave abnormality Abnormal ECG
--- NOTE | 2018-09-20 18:55 | CON ---
DATE: 09/20/2018 HISTORY OF PRESENT ILLNESS: This is an 83-year-old male with past medical history of CVA and came to the hospital with altered mental status over a week. The patient is not talkative. Denies any nausea and vomiting. The patient has been less interactive for the past one week. The patient also has bradycardia and hypotension. PAST MEDICAL HISTORY: As above. PHYSICAL EXAMINATION: VITAL SIGNS: Blood pressure 105/43, pulse rate 46. NEUROLOGIC: The patient is awake and less responsive. Spontaneous movement of extremities noted. Deep tendon reflexes are 1+. Plantars are downgoing. Sensory appears intact. Cerebellar, gait deferred. LABORATORY DATA: WBC 8.1, hemoglobin 13.2, hematocrit 39.4, platelets 234. Sodium 139, potassium 5.3, chloride 106, CO2 of 25, glucose 97, BUN 31, creatinine 1.7. IMPRESSION AND PLAN: Encephalopathy, possibly toxic metabolic, and workup in progress. CAT scan of the head was done with no acute findings was seen in the head. No bleed or infarct. Workup in progress. Continue present management. We will follow up. Kedar Kaur MD
--- NOTE | 2018-09-20 21:32 | HP ---
DATE OF EXAM: 09/20/2018 HISTORY OF PRESENT ILLNESS: The patient is an 83-year-old male who was admitted with mental status changes and bradycardia. I received a phone call from the patient's daughter who was visiting for the holidays, stated that the patient had hardly drink anything over the past day or two, also he is not talking. At times, he would say that it hurts asking for his legs to be moved. I suggested hospitalization, so the patient was brought in, evaluated in the emergency room, and admitted. PAST MEDICAL HISTORY: Past medical history is positive for hypertension, status post cerebrovascular accident x2 in the past. SOCIAL HISTORY: The patient never smoked. He is a nonalcoholic drinker. ALLERGIES: HE HAS NO KNOWN MEDICAL ALLERGIES. MEDICATIONS: At the time of admission, he was taking Xanax, atenolol, losartan, amlodipine, and metformin. REVIEW OF SYSTEMS: Unobtainable because the patient is quite obtunded and not responding to verbal stimuli. There seems to be purulence in the corners of the eyes bilaterally. PHYSICAL EXAMINATION: HEENT: Examination of the head, eyes, ears, nose and throat, there seems to be purulence in the corners of the eyes bilaterally. His mucosa is moist. NECK: Supple with no lymphadenopathy or goiter. LUNGS: Clear anteriorly and laterally. HEART: Regular. No murmurs are appreciated. ABDOMEN: Flat, soft, nontender with no organomegaly. As per the patient's daughter, the patient lost quite a bit of weight over the last several months. EXTREMITIES: Free of cyanosis, clubbing or edema. NEUROLOGICAL: There is residual hemiparesis involving the left side status post cerebrovascular accident. LABORATORY STUDIES: Show the white blood cell count to be normal at 8.1, hemoglobin and hematocrit are 13.2 and 39.4 respectively, platelet count is 234. Sodium is 139, potassium 5.3, blood urea nitrogen 31, creatinine 1.7, glucose is 97. BNP is elevated at 2300. Urinalysis is positive for infection. The patient is afebrile at 97.6 degrees Fahrenheit, blood pressure is 124/60 with a heart rate of 48. Chest x-ray shows no acute disease. CT scan of the head is negative. CT scan of the chest and abdomen and pelvis are all negative. So, the patient is admitted with altered mental status and bradycardia. He is started on IV fluids. He is also started on Rocephin 1 g intravenously daily. The patient is to be reevaluated in the morning. Consultation from Dr. Kaur, the radiologist and Dr. De Souza, the boiler tenders supervisor is requested. Agustin Pickett MD MTDD
[2018-09-21] MEDS: Sodium Chloride 0.9% 1,000 ML IV SCH ×2 (02:20→17:27)
[2018-09-21 06:31] LABS: BASO # 0.02 K/mm3 (0.0-2.0); BASO % 0.3 % (0.0-3.0); EOS # 0.1 (0.0-0.7); EOS % 0.9 % (1.5-5.0); GRAN # 3.49 (1.4-6.5); GRAN % 52.4 % (50.0-68.0); HEMOGLOBIN 11.3 g/dL (14.0-18.0); LYMPH # 2.2 (1.2-3.4); LYMPH % 33.2 % (22.0-35.0); MEAN CELL VOLUME 93.7 fl (80.0-105.0); MEAN CORPUSCULAR HGB CONC 33.1 g/dl (31.0-37.0); MONO # 0.9 (0.1-0.6); MONO % 13.2 % (1.0-6.0); RBC 3.64 10^6/uL (3.5-6.1); RED CELL DISTRIBUTION WIDTH 15.4 % (11.5-14.5); WHITE BLOOD COUNT 6.7 10^3/uL (4.5-11.0)
[2018-09-21 06:42] LABS: ALB/GLOB RATIO 0.7 (1.1-1.8); ALBUMIN 2.8 g/dL (3.0-4.8); ALT/SGPT 16 U/L (7-56); AST/SGOT 26 U/L (17-59); BLOOD UREA NITROGEN 22 mg/dL (7-21); CALCIUM 8.3 mg/dL (8.4-10.5); GFR NON-AFRICAN AMERICAN > 60; HDL CHOLESTEROL 31 mg/dL (29-60)
[2018-09-21 06:48] LABS: LDL CHOLESTEROL 59 mg/dL (0-129)
[2018-09-21 06:52] LABS: FREE T4 1.6 ng/dL (0.78-2.19)
--- NOTE | 2018-09-21 08:51 | CON ---
DATE: 09/20/2018 The patient is seen in the emergency room #600, bed #2. REASON FOR CONSULTATION: The patient has known CVA, type 2 diabetes, hypertension, admitted with altered mental status. HISTORY OF PRESENT ILLNESS: The patient also has not been eating for 1 week well and he has been not that much communicative like before. The patient was on atenolol, Cozaar, amlodipine, and metformin. The patient denies any chest pain, shortness of breath, palpitation. The patient when came to the ER, he was hypotensive and bradycardia. Dr. Payne called me, I told him to give wide open IV fluid for which his blood pressure improved. Patient's troponin has been negative x3. TSH also normal. The patient found to have also urinary tract infection, so patient's symptomatology probably on the basis of few things, one is infection, one is not eating, dehydration. Also, the patient was on beta-bibi which would lower the heart rate. So, we have started IV fluid and antibiotics has been started. Since the patient's blood pressure is stable at this point, so we are going to hold off amlodipine, atenolol, and losartan till the blood pressure goes to above normal range; till that time we will hold it. Since the patient has bradycardia on admission, so we will hold atenolol as well. Right now, heart rate is better as compared to when he came in and heart rate went down to 34 and 40s. So, we will continue antibiotic, ceftriaxone 2 g with 1 g IV daily for urinary tract infection. We will continue IV fluid therapy and we will monitor with you and follow with you. They will also do echocardiogram to evaluate LV function and we will continue to follow with you. Detailed consult has been already written by Dr. Kym Ruiz, so this is an addendum to that consult. Tamera De Souza MD
[2018-09-21] MEDS: cefTRIAXone 1 gm 1 GM/100 ML BAG IVPB SCH (10:07)
--- NOTE | 2018-09-21 14:47 | PN ---
DATE: 09/21/2018 CHIEF COMPLAINT: Followup for altered mental status. SUBJECTIVE: The patient is mildly confused, but is deconditioned. He has urine cultures positive for Klebsiella oxytoca. He is currently on ceftriaxone. Currently, the patient has underlying bradycardia and his beta bibi is on hold as per Cardiology. 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 FAMILY HISTORY: Noncontributory. ALLERGIES: NO KNOWN DRUG ALLERGIES. REVIEW OF SYSTEMS: Fourteen-point review of systems is as per HPI. MEDICATIONS: Reviewed by nurse's reconciliation sheet. PHYSICAL EXAMINATION: VITAL SIGNS: Temperature 97.7, pulse rate of 54, blood pressure 113/58, respiratory rate of 19. GENERAL: The patient is lethargic, deconditioned, in no acute distress. HEENT: Atraumatic, normocephalic. PERRLA. Extraocular muscles intact. NECK: Supple. No JVD, no adenopathy noted. LUNGS: Decreased breath sounds bilaterally. HEART: Bradycardic, S1 and S2 present. ABDOMEN: Soft, nontender, nondistended. Bowel sounds present. NEUROLOGIC: The patient is alert, oriented to person and place, not much to month or year. Speech is hypophonic. No aphasia noted. Cranial nerves II through XII are intact except for residual left facial droop from prior CVA. Motor exam: He has mild left-sided weakness, 4++/5 compared to the right from prior CVA. Toes are downgoing. Sensory exam: Light touch, pinprick, proprioception and vibration are intact. DTRs 2+ throughout and 1 at both knees and ankles. Coordination and gait : Deferred for now. LABORATORY DATA: Sodium 142, potassium 4.2, chloride 114, carbon dioxide 22, BUN of 22, creatinine 1.1, random glucose of 125. ASSESSMENT AND PLAN: Altered mental status secondary to underlying toxic metabolic encephalopathy with a positive urine culture growing Klebsiella oxytoca, on antibiotics, superimposed on a deconditioned state. The patient is also bradycardic and beta bibi was placed on hold. Continue to monitor and continue to give gentle hydration and monitor electrolytes and correct accordingly and delirium precautions. Eddie Kaur MD [facility] # [id number]
--- NOTE | 2018-09-21 17:36 | CARD ---
APPROVED REPORT Date of service: 09/21/2018 EXAM: Two-dimensional and M-mode echocardiogram with Doppler and color Doppler. INDICATION LV Function:SystolicDiastolic 2D DIMENSIONS Left Atrium (2D)3.8 (1.6-4.0cm)IVSd1.2 (0.7-1.1cm) LVDd3.0 (3.9-5.9cm)PWd1.2 (0.7-1.1cm) LVDs2.4 (2.5-4.0cm)FS (%) 18.7 % LVEF (%)40.1 (>50%) M-Mode DIMENSIONS Aortic Root2.40 (2.2-3.7cm)Aortic Cusp Exc.0.60 (1.5-2.0cm) Mitral Valve E/A ratio0.0 TDI E/Lateral E'0.0E/Medial E'0.0 Tricuspid Valve TR Peak [id number] Peak Gr.23mmHg [id number] LEFT VENTRICLE The Left Ventricle is borderline dilated. There is mild concentric left ventricular hypertrophy. The systolic function is mildly impaired.EF-40-45% There is mild to moderate hypokinesis in the mid-anterolateral wall. The left ventricular diastolic function is normal. No left ventricle thrombus noted on this study. There is no ventricular septal defect visualized. There is no left ventricular aneurysm. There is no mass noted in the left ventricle. RIGHT VENTRICLE The right ventricle is mildly to moderately dilated. There is normal right ventricular wall thickness. Systolic function is mildly to moderately reduced. ATRIA The left atrium size is normal. The right atrium size is normal. The interatrial septum is intact with no evidence for an atrial septal defect. AORTIC VALVE The aortic valve is calcified and displays decreased opening. There is trace aortic regurgitation. There is moderate to severe valvular aortic stenosis. There is no aortic valvular vegetation. MITRAL VALVE The mitral valve is thickened but opens well. Mitral regurgitation is trace. There is no mitral valve stenosis. There is no evidence of mitral valve prolapse. TRICUSPID VALVE The tricuspid valve leaflets are thickened , but open well. There is mild tricuspid regurgitation.RVSP-33 mmof Hg. There is no tricuspid valve stenosis. There is no tricuspid valve prolapse or vegetation. PULMONIC VALVE The pulmonic valve is borderline thickened. There is trace pulmonic valvular regurgitation. There is no pulmonic valvular stenosis. GREAT VESSELS The aortic root is normal in size. The ascending aorta is normal in size. The pulmonary artery is normal. PERICARDIAL EFFUSION There is no pleural effusion. Anterior perocardial PAd of Fat noted. <Conclusion> TDS. Pt was supine during ECHO, limited views were obtained EF-40-45% Dilated RV and decrease function Trace MR Trace AR Moderate to severe Mild TR ,RVSP-33 mmof Hg. anterior pericardial pad of Fat noted.
--- NOTE | 2018-09-21 18:57 | PN ---
DATE: 09/21/2018 REASON FOR CONSULTATION: CVA, diabetes, admitted with altered mental status, cardiac evaluation and followup, and history of hypertension. The patient denies any chest pain, shortness of breath or any palpitations. OBJECTIVE: GENERAL: Not in apparent distress. VITAL SIGNS: Temperature afebrile, heart rate 54, and blood pressure 113/58. HEENT: PERRLA. Extraocular muscles intact. NECK: Supple. No carotid bruit or thyromegaly. CHEST: Clear to auscultation. HEART: S1 and S2 regular. ABDOMEN: Soft. EXTREMITIES: Clubbing and cyanosis negative. LABORATORY DATA: WBC 6.7, hemoglobin 11, hematocrit 34.1, and platelet count 188. Chemistry shows sodium 142, potassium 4.2, chloride 114, carbon dioxide 22, anion gap of 11, BUN 22, and creatinine 1.1. TSH 1.22. Albumin 2.8. protein-calorie malnutrition moderate, was not present on admission. IMPRESSION AND PLAN: An 83-year-old male with past medical history of cerebrovascular accident x2, admitted with altered mental status as well as left-sided weakness and facial droop, hypertension, and altered mental status. So far, the patient's troponin is negative, no evidence of acute myocardial infarction by CPK, troponin baseline. Admitting albumin was stable, but the patient showed [id number] protein-calorie malnutrition at 2.8. On admission, the patient was hypotensive, now with intravenous fluid, the patient improved. The patient baseline bradycardic, avoid beta-bibi, avoid weight limiting calcium-channel bibi. Hold losartan and amlodipine till the blood pressure is above. Continue intravenous fluid, though the patient was at 100 mg of Tenormin at home, so probably this could be the reason that the patient was bradycardic on admission. We will hold it and discontinue Tenormin 100 and may be after the washout period, we will start low dose 25 p.o. once heart rate is well controlled. Also the patient is on losartan and Norvasc, for now we will hold it until the blood pressure gets improved. We will follow the echo. Further recommendation hospital course. The patient has urinary tract infection and urine culture growing Klebsiella organism. Continue antibiotic. We will follow with you. TSH is 1.6, LDL 59, HDL 31, total cholesterol 106, and hemoglobin A1c 5.1. Thank you Dr. Pickett for providing us the opportunity in taking care of the patient, Buck Lubin. Tamera Holliday MD
[2018-09-21] MEDS: Albuterol-Ipratrop 3 mg / 0.5 (3 ml) UD IH SCH (20:30)
[2018-09-22] MEDS: Albuterol-Ipratrop 3 mg / 0.5 (3 ml) UD IH SCH ×4 (02:45→19:42)
--- NOTE | 2018-09-22 09:46 | CP.PCM.PCO ---
Physician Communication Note - Physician Communication Note Physician Communication Note: PT eval is pending
[2018-09-22 10:41] LABS: BASO # 0.03 K/mm3 (0.0-2.0); BASO % 0.5 % (0.0-3.0); EOS # 0.1 (0.0-0.7); EOS % 0.8 % (1.5-5.0); GRAN # 3.48 (1.4-6.5); GRAN % 53.9 % (50.0-68.0); HEMOGLOBIN 11.9 g/dL (14.0-18.0); LYMPH # 2.1 (1.2-3.4); LYMPH % 32.9 % (22.0-35.0); MEAN CELL VOLUME 94.5 fl (80.0-105.0); MEAN CORPUSCULAR HEMOGLOBIN 30.9 pg (25.0-35.0); MEAN CORPUSCULAR HGB CONC 32.7 g/dl (31.0-37.0); MEAN PLATELET VOLUME 9.8 fl (7.0-11.0); MONO # 0.8 (0.1-0.6); MONO % 11.9 % (1.0-6.0); RBC 3.85 10^6/uL (3.5-6.1); RED CELL DISTRIBUTION WIDTH 15.8 % (11.5-14.5); WHITE BLOOD COUNT 6.5 10^3/uL (4.5-11.0)
[2018-09-22 10:59] LABS: ALB/GLOB RATIO 0.8 (1.1-1.8); ALBUMIN 2.9 g/dL (3.0-4.8); ALT/SGPT 20 U/L (7-56); AST/SGOT 27 U/L (17-59); BLOOD UREA NITROGEN 13 mg/dL (7-21); CALCIUM 8.5 mg/dL (8.4-10.5); GFR NON-AFRICAN AMERICAN > 60; TOTAL IRON BINDING CAPACITY 153 ug/dL (261-462)
[2018-09-22 11:01] LABS: % IRON SATURATION 41 % (20-55); IRON 62 ug/dL (45-180)
--- NOTE | 2018-09-22 11:53 | RAD ---
Date of service: 09/22/2018 HISTORY: NO TOLERATING FOD, COUGHING, POSSIBLE ASPIRATION COMPARISON: 09/19/2018. TECHNIQUE: Chest PA and lateral FINDINGS: LUNGS: No active pulmonary disease. PLEURA: No significant pleural effusion identified. No pneumothorax apparent. CARDIOVASCULAR: Atherosclerotic calcifications identified primarily aortic arch. Normal cardiac size. No pulmonary vascular congestion. OSSEOUS STRUCTURES: No significant abnormalities. VISUALIZED UPPER ABDOMEN: Normal. OTHER FINDINGS: None. IMPRESSION: No active disease. No significant interval change compared to the prior examination(s).
--- NOTE | 2018-09-22 14:17 | PN ---
DATE: 09/22/2018 REASON FOR CONSULTATION: Followup, CVA, diabetes, admitted with altered mental status, cardiac evaluation and followup, history of hypertension. SUBJECTIVE: The patient denies any chest pain, shortness of breath, or any palpitation. PHYSICAL EXAMINATION: GENERAL: Not in apparent distress. VITAL SIGNS: Temperature afebrile, heart rate 60, and blood pressure 109/43. HEENT: PERRLA. Intact. NECK: Supple. No carotid bruit or thyromegaly. CHEST: Clear to auscultation. HEART: S1 and S2, regular. ABDOMEN: Soft. EXTREMITIES: Clubbing and cyanosis negative. LABORATORY DATA: Blood workup as follows: WBC 6.3, hemoglobin 11.3, hematocrit 34.1, and platelet count 188. Chemistry shows sodium 140, potassium 4.2, chloride 104, carbon dioxide 22, anion gap of 11, BUN 20, and creatinine 1.1. TSH 2.22. The patient had echocardiography done yesterday that revealed technically difficult study supine, limited views were obtained. Ejection fraction 40% to 45%, dilated RV and decreased RV fashion, trace MR. IMPRESSION AND PLAN: An 83-year-old male with a past medical history of cerebrovascular accident twice, facial droop, left-sided weakness, admitted to the hospital with altered mental status and facial droop, history of hypertension, very poor historian, so far no evidence of acute myocardial infarction. Echocardiogram showed ejection fraction 40% to 45%, dilated right ventricle, trace tricuspid regurgitation, technically difficult study. Admitting heart rate was 44 bradycardia, 100 mg of Tenormin, which is on hold and now the bradycardia resolved. Heart rate is in 60 and the blood pressure now is 109/43, so we will start low dose of atenolol from tomorrow as the blood pressure is tolerated. Also losartan is on hold because of low blood pressure. We will start 25 of losartan only and Tenormin 25 from tomorrow. We will follow with you. So far no evidence of acute myocardial infarction noted, though the patient has a renal insufficiency 1.7 and the troponin is 0.2, which is not significant. We will follow with you. Because of low ejection fraction, we will put Tenormin 25 from tomorrow and losartan 25 mg from tomorrow as the blood pressure is tolerated. If he remains stable, we will discontinue telemetry. 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 Thank you Dr. Pickett for providing us the opportunity in taking care of the patient, Amee. Tamera Holliday MD
[2018-09-22 18:07] LABS: FOLATE 5.9 ng/mL
[2018-09-23] MEDS: Albuterol-Ipratrop 3 mg / 0.5 (3 ml) UD IH SCH ×4 (01:04→20:32)
--- NOTE | 2018-09-23 03:05 | PN ---
DATE: 09/22/2018 SUBJECTIVE: The patient was seen this Friday mid afternoon in room 263, bed 2. Resting comfortably in bed. He is n.p.o. for fear of aspiration precautions, having been seen by the speech pathologist on two past occasions. He was complaining of being hungry and wanting to eat, saying he has not eaten in two days. I asked him about the difficulty swallowing. He says he just needs to take time and eat slowly. He always eats slowly at home, ever since his past stroke. PHYSICAL EXAMINATION: HEENT: Conjunctivae pink. Head and neck are unremarkable. Mucous membranes are moist. NECK: Supple. LUNGS: Clear. HEART: Regular. EXTREMITIES: Show no edema. ASSESSMENT AND PLAN: IV infusion. The patient is slow in mentation and speech, but appears awake and alert and clear. Later in the day, our nurse practitioner spoke with the patient's , who reports he has been eating slowly and coughing after eating for 20 years. This may date back even before his stroke. I gave him a sponge on a stick with water and thickened juice. He seemed to tolerate it rather well. I will await for input from the speech pathologist. Hopefully, we will increase his diet later today or certainly tomorrow, increase activity, and perhaps look into transitional care for additional physical therapy or else home soon. Jersey Pickett MD
[2018-09-23] MEDS: Sodium Chloride 0.9% 1,000 ML IV SCH ×2 (05:27→16:15)
[2018-09-23] MEDS: cefTRIAXone 1 gm 1 GM/100 ML BAG IVPB SCH (10:01)
[2018-09-23] MEDS: Pantoprazole 40 mg EC Tab PO SCH (10:04)
--- NOTE | 2018-09-23 10:35 | PN ---
DATE: 09/23/2018 REASON FOR CONSULTATION: Followup, CVA, diabetes, altered mental status, cardiac evaluation and followup, history of hypertension. SUBJECTIVE: The patient denied any chest pain, shortness of breath, or any palpitation. Left-sided contracted upper extremity. PHYSICAL EXAMINATION: GENERAL: Not in apparent distress. Contracted left-sided upper extremity. Failed swallowing evaluation with liquid, but can swallow with thickening. The patient asking for water, but allowed to give only with thickening. VITAL SIGNS: Temperature afebrile, heart rate 70, blood pressure 118/48. HEENT: PERRLA. Extraocular muscles are intact. NECK: Supple. No carotid bruit or thyromegaly. CHEST: Clear to auscultation. HEART: S1 and S2, regular. ABDOMEN: Soft. EXTREMITIES: Clubbing and cyanosis negative. LABORATORY DATA: Blood workup as follows: WBC 6.5, hemoglobin 11.9, hematocrit 36.4, platelet count 170. Chemistry shows sodium 140, potassium 4.3, chloride 117, carbon dioxide 22, anion gap of 11, BUN 33, and creatinine 0.9. Cholesterol, total triglyceride 70, LDL 59, HDL 31. IMPRESSION: An 83-year-old male with a past medical history significant for cerebrovascular accident twice, facial droop, left-sided weakness, admitted to the hospital with altered mental status and facial droop, history of hypertension, poor historian. So far, no evidence of acute myocardial infarction. Echo showed ejection fraction 45%, dilated right ventricle, trace tricuspid regurgitation, technically difficult study. Admitting heart rate was bradycardia at 44. The patient was on 100 mg of Tenormin, which was on hold. Tachycardia completely resolved. Borderline troponin is indeterminate at 0.02, which is still low secondary to renal insufficiency. RECOMMENDATION: We will start low dose of Tenormin and continue low dose of losartan, atenolol decreased to 25 from today. control of blood pressure, medical treatment. Started low dose of Tenormin from today 25 and losartan 25. We will follow with you. Thank you Dr. Pickett for providing us the opportunity in taking care of the patient, Amee. Tamera Holliday MD
--- NOTE | 2018-09-23 14:31 | CP.PCM.PCO ---
Physician Communication Note - Physician Communication Note Physician Communication Note: patient is medically cleared for D/C today.
--- NOTE | 2018-09-23 14:32 | CP.PCM.PCO ---
Physician Communication Note - Physician Communication Note Physician Communication Note: Family as per Dr. Pickett E is looking for [facility] in [place].
[2018-09-24] MEDS: Albuterol-Ipratrop 3 mg / 0.5 (3 ml) UD IH SCH ×3 (01:21→13:06)
[2018-09-24] MEDS: Sodium Chloride 0.9% 1,000 ML IV SCH (02:30)
[2018-09-24 06:34] VITALS: O2SAT 99
--- NOTE | 2018-09-24 08:26 | CP.PCM.PCO ---
Physician Communication Note - Physician Communication Note Physician Communication Note: medically cleared for D/C to [facility]
[2018-09-24] MEDS: cefTRIAXone 1 gm 1 GM/100 ML BAG IVPB SCH (09:56)
[2018-09-24] MEDS: Pantoprazole 40 mg EC Tab PO SCH (10:05)
--- NOTE | 2018-09-24 10:19 | CP.PCM.PN ---
Subjective - Date & Time of Evaluation Date of Evaluation: 09/24/18 Time of Evaluation: 06:15 - Subjective Subjective: Lying in bed, awake, no distress Reason for consultation and follow up: Cardiac evaluation of bradycardia Seen and examined by me and Dr. De Souza Objective - Vital Signs/Intake and Output Vital Signs (last 24 hours): Temp Pulse Resp BP Pulse Ox 97.8 F 70 20 118/55 L 99 09/24/18 06:00 09/24/18 06:00 09/24/18 06:00 09/24/18 06:00 09/24/18 06:00 Intake and Output: 09/24/18 09/24/18 06:59 18:59 Intake Total 4810 Output Total 1 Balance 4809 - Medications Medications: Current Medications Albuterol/Ipratropium (Duoneb 3 Mg/0.5 Mg (3 Ml) Ud) 3 ml IH [id number] [facility] Last Admin: 09/24/18 07:46 Dose: 3 ml Amlodipine Besylate (Norvasc) 10 mg PO DAILY [facility] Last Admin: 09/21/18 10:07 Dose: 10 mg Atenolol (Tenormin) 25 mg PO DAILY [facility] Last Admin: 09/23/18 10:00 Dose: 25 mg Sodium Chloride (Sodium Chloride 0.9%) 1,000 mls @ 100 mls/hr IV .Q10H [facility] Last Admin: 09/24/18 02:30 Dose: 100 mls/hr Ceftriaxone Sodium (Rocephin 1 Gram Ivpb) 1 gm in 100 mls @ 100 mls/hr IVPB DAILY [facility]; Protocol Last Admin: 09/23/18 10:01 Dose: 100 mls/hr Losartan Potassium (Cozaar) 25 mg PO DAILY [facility] Last Admin: 09/23/18 10:00 Dose: 25 mg Metformin HCl (Glucophage) 500 mg PO DAILY [facility] Last Admin: 09/23/18 10:01 Dose: 500 mg Pantoprazole Sodium (Protonix Ec Tab) 40 mg PO ACB [facility] Last Admin: 09/23/18 10:04 Dose: 40 mg - Labs Labs: 09/22/18 10:35 09/22/18 10:35 PT 13.1 SECONDS (9.4-12.5) H 09/19/18 15:41 INR 1.15 12/08/18 15:41 APTT 29.4 Seconds (25.1-36.5) 09/19/18 15:41 - Constitutional Appears: Non-toxic, No Acute Distress - Eye Exam Eye Exam: Normal appearance Pupil Exam: NORMAL ACCOMODATION - Respiratory Exam Respiratory Exam: Decreased Breath Sounds, NORMAL BREATHING PATTERN - Cardiovascular Exam Cardiovascular Exam: +S1, +S2 - GI/Abdominal Exam GI & Abdominal Exam: Soft, Normal Bowel Sounds - Neurological Exam Neurological Exam: Alert, Awake - Psychiatric Exam Psychiatric exam: Normal Affect, Normal Mood - Skin Skin Exam: Dry, Normal Color, Warm Assessment and Plan - Assessment and Plan (Free Text) Assessment: An 83 year old who came in to the ER due to altered mental status for the past w [place] [facility] [place] as per family member. History of CVA x 2 .(facial droop, left sided weakness as baseline), hypertension. Patient was not interactive or talking much prior to admission. Poor historian. Chart reviewed.Patient is taking atenolol and cozaar and amlodipine at home. Last intake was 09/19/18. Will hold meds for now.EKG showed bradycardia so cardiac consult was called. Also patient is hypotensive. IV fluids started at 100cc/hr.chest X ray -normal, !2 lead EKG showed Sinus bradycardia with 1st degree AV block with premature atrial complexes with aberrant conduction, Non specific ST T wave abnormality,prolonged QT. No betablocker. Troponin normal x 3.Urine culture positive for gram negative rods. Admitted for UTI and Bradycardia. [place] cardiac [place] [facility] [place] Urine positive for Klebsiella oxytoca. Echo done-LVEF 40-45%,dilated RV, decrease function, limited study, Trace MR/AR, mild TR RVSP 33mmHg, moderate to severe . Bradycardia resolved. Plan: No distress, awake Hear rate controlled Blood pressure stable Bradycardia resolved, restarted medications On Norvasc 10 mg daily, Tenormin 25 mg daily, Cozaar 25 mg daily Continue antibiotics for UTI as per ID Continue current treatment Continue current medications Discharge planning Will follow up Plan and treatment discussed with Dr. De Souza
[2018-09-24 12:55] VITALS: BP 139/70; RESP 19; TEMP 98.1
[2018-09-24 17:21] VITALS: PULSE 71
--- NOTE | 2018-09-24 23:11 | PN ---
DATE: 09/24/2018 LOCATION: Room 263, bed 2. Detailed progress note has been already written by Kym Ruiz. This is an additional note. SUBJECTIVE: The patient was admitted with altered mental status, history of CVA x2, hypertension. The patient was not interactive or talking much and the patient was brought to emergency where he was found to be markedly bradycardic and hypotensive. The patient was also on beta bibi and ANUPAM inhibitors for blood pressure. The patient was given IV fluids and beta bibi and ANUPAM inhibitors were put on hold. The patient started to get better. LABORATORY DATA: Urine was positive for Klebsiella oxytoca. Echo showed LV of 40% to 45%, LAD , decreased RV contractility, trace MR, trace AR, mild TR, RVSP 33 mmHg. Moderate to severe aortic stenosis. ASSESSMENT AND PLAN: The patient was given IV antibiotics, IV fluids and his improved and heart rate also improved. ANUPAM inhibitor and beta bibi were put on hold. We will continue present therapy and will follow the patient with you closely. Tamera De Souza MD
== END 2018-09-24 15:38 | DRG 689 ==
LOC: ED 14:42 → ERH 16:48 → 2RNO 09-20 18:42
PROVIDERS: ADMIT Internal Medicine; ATTEND Internal Medicine
DX: N39.0 Urinary tract infection, site not specified (principal); G93.41 Metabolic encephalopathy; I69.354 Hemiplegia and hemiparesis following cerebral infarction affecting left non-dominant side; E44.0 Moderate protein-calorie malnutrition; Z68.1 Body mass index [BMI] 19.9 or less, adult; R41.82 Altered mental status, unspecified; R00.1 Bradycardia, unspecified; T44.7X5A Adverse effect of beta-adrenoreceptor antagonists, initial encounter; I95.9 Hypotension, unspecified; I10 Essential (primary) hypertension; E11.9 Type 2 diabetes mellitus without complications; I44.0 Atrioventricular block, first degree; I69.392 Facial weakness following cerebral infarction; Z79.84 Long term (current) use of oral hypoglycemic drugs